=== PATIENT | female | born 1990 | race Caucasian/White ===

== ENCOUNTER → 2017-07-25 10:47 | Outpatient (CLI) | payer OTHER, SELFPAY ==
[2017-07-25 11:49] LABS: Anion Gap 7 (5-15); BUN 12 mg/dL (7-18); BUN/Creat Ratio 15.6 RATIO (10-20); Calcium,Total 8.4 mg/dL (8.5-10.1); Chloride 105 mmol/L (98-107); Cholesterol 131 mg/dL (200); Creatinine, Serum 0.77 mg/dL (0.55-1.02); EST Glomerular Filtration Rate 97 mL/min (>60); Est Glom Filt Rate - Afr Amer 117 mL/min (>60); Glucose 78 mg/dL (70-110); High Density Lipoprotein 52 mg/dL; Potassium 3.7 mmol/L (3.5-5.1); Sodium Level 139 mmol/L (136-145); Triglycerides 83 mg/dL; Very Low Density Lipoprotein 17 mg/dL (5-40)
== END ==
PROVIDERS: Family Provider Internal Medicine; PCP Internal Medicine; Visit Provider Internal Medicine
DX: I10 Essential (primary) hypertension (principal); E87.6 Hypokalemia
CPT/HCPCS: 36415; 80048; 80061

== ENCOUNTER 2018-03-20 15:35 | Outpatient (CLI) | payer OTHER, SELFPAY ==
[2018-03-20 15:57] VITALS: BMI 39.2
[2018-03-20 16:30] LABS: ROM Internal Control Test YES-OK TO RESULT pt. (Internal QC); ROM Patient Test Negative (Negative)
--- NOTE | 2018-03-21 08:33 | OB.TRI.NOTE ---
History of Present Illness Date of Service: 03/20/18 Was patient seen by the physician?: Yes Reason For Visit: R/O PROM Final SASCHA: 08/08/18 Gestational age: 19w 6 d Allergies No Known Allergies Allergy (Verified 03/20/18 16:10) - Pertinent Past Medical History Medical History: Past Medical History (Last Updated 07/24/17 @ 17:18 by Cassandra Toney) Anxiety (Acute) Hypertension (Chronic) Impression/Plan 19 week @ 19w 6 days with oligohydramnios neg ROM+, Neg. fern in the office. D/w her clinical presentation c/w SROM, monitor for labor, signs/symptoms of infection. Call or return prn and f/u next week for repeat US patient understands plan
== END 2018-03-20 16:55 | disposition home or self-care (01) ==
LOC: WPOUT 15:44 → WP 15:45
PROVIDERS: Family Provider Internal Medicine; PCP Internal Medicine; Visit Provider Obstetrics & Gynecology
DX: O41.02X0 Oligohydramnios, second trimester, not applicable or unspecified (principal); Z3A.19 19 weeks gestation of pregnancy
CPT/HCPCS: 84112; 99218; G0378

== ENCOUNTER → 2018-03-25 13:12 | Outpatient (CLI) | payer OTHER, SELFPAY ==
--- NOTE | 2018-03-25 13:14 | VDLE_ITS ---
Reason For Study: LEG PAIN RIGHT LEFT GSV is normal. CFV is compressible, spontaneous, phasic, CFV is compressible, spontaneous, phasic, competent, and demonstrates normal competent and demonstrates normal augmentation. augmentation. FV is compressible, spontaneous, phasic, competent and demonstrates normal augmentation. POP V is compressible, spontaneous, phasic, competent and demonstrates normal augmentation. T/P Trunk is compressible. PTV is compressible. RT PerV is compressible. Procedure Exam performed in department. A preliminary report was called and/or faxed to Dr. Peña. Interpretation Summary Deep veins of the right lower extremity are patent and compressible segmentally. There is no evidence of right lower extremity deep vein thrombosis. Valvular competence appears intact within the proximal deep venous system on the right . The right greater saphenous vein appears patent and compressible segmentally. Ordering Physician: Alex Peña Referring Physician: Alex Peña Performed By: Rosa Delacruz RVT
== END ==
PROVIDERS: Family Provider Internal Medicine; PCP Internal Medicine; Referring Provider Obstetrics & Gynecology; Visit Provider Obstetrics & Gynecology
DX: M79.604 Pain in right leg (principal)
CPT/HCPCS: 93971

== ENCOUNTER 2018-07-25 04:46 | Inpatient (IN) | payer OTHER, SELFPAY ==
--- NOTE | 2018-07-23 12:19 | HP.PCM_ITS ---
History and Physical Date of Admission: 07/25/18 Pre-Op History and Physical ? HPI: The patient is a 27 year old female presenting for pre-operative visit. She is scheduled for , for breech and chronic HTN on medications on 07/25/18. ??Procedure discussed along with risks, benefits and complications. ?Other alternatives discussed for management. Consent form signed? Yes. ? ? ? PAST?MEDICAL?HISTORY PAST MEDICAL HISTORY Diagnosis Date ? fracture as a child ? right arm, gym accident ? Hypertension ? ? ? PAST?SURGICAL?HISTORY PAST SURGICAL HISTORY Procedure Laterality Date ? EGD ? CURRENT?MEDICATIONS ? Current Outpatient Prescriptions: Miscellaneous Medical Supply (BLOOD PRESSURE CUFF) misc 1 Kit once daily. Disp: 1 Each Rfl: 0 labetalol (TRANDATE) 100 mg tablet Take 50 mg by mouth twice daily. Disp: Rfl: [id number] 267 mcg-321 mg- 250 mg CPTw Take by mouth. Disp: Rfl: ? No current facility-administered medications for this visit. ? ALLERGIES: Patient has no known allergies. ? PERSONAL HISTORY: SOCIAL?HISTORY Social History ??Marital status: ?Spouse name: Noemy ?Years of education: 13 ?Number of children: ? Occupational History Occupation ?Employer ?Comment ? [employer]* [employer] * ? Social History Main Topics ??Smoking status: Never Smoker ?Smokeless tobacco: Never Used ?Alcohol use: No ?Drug use: No ?Sexual activity: Yes ?Partners with: Male ? ? FAMILY HISTORY: FAMILY?HISTORY FAMILY HISTORY Problem Relation Age of Onset ? No Known Problems Mother ? ? Hypertension Father ? ? Hypertension Brother ? ? Cancer Maternal Grandmother ?Stomach cancer ? Heart disease Maternal Grandfather ? ? Hypertension Paternal Grandmother ? ? Hypertension Paternal Grandfather ? ? REVIEW OF SYMPTOMS: GENERAL: denies fevers or chills ENDOCRINOLOGY: has not been on steroids Cardiology : denies palpitations or chest pain Respiratory: denies SOB other than normal for or cough Hematology: denies history of prolonged bleeding or easy bruising or VTE Allergy: Denies history of personal or family history of allergy to anesthesia ? ? PHYSICAL EXAMINATION: ? VITALS: Blood pressure 140/64, weight 276 lb (125.2 kg), last menstrual period 10/01/2017. ? GENERAL: ?The patient is well nourished, well hydrated in no acute distress. ?, The patient is oriented to time, place, and person. NECK: Supple. No lynphadenopathy, normal thyroid, no thyromegaly. LUNGS: Clear to auscultation bilaterally. no wheezes, rhonchi or rales HEART: Regular rate and rhythm, Normal heart sounds and No murmurs or gallops abd- soft nontender, gravid, size appropriate for gestational age ? ? IMPRESSION: Chronic hypertension on medication without preeclampsia as of preop visit, estimated weight at 12th percentile, breech presentation ? PLAN: ??The risks/benefits/alternatives and personal involved for the planned c/s?were reviewed with the patient. Her questions were answered to her satisfaction and she desires to proceed. ?Consent was signed. ?I reviewed with her postop instructions and expectations. ? ? I have reviewed and updated past medical and surgical history, medications and allergies Henna Mcfarland M.D. Patient seen and examined today preoperatively at 725. There are no clinically relevant updates to the H&P.
[2018-07-25] VITALS (21 sets, daily range): BP systolic 125–152; BP diastolic 61–85; PULSE 68–87; RESP 16–20; TEMP 36.1–36.8; O2SAT 94–100; BMI 43.3
[2018-07-25] MEDS: Lactated Ringers 1,000 ML 999 ML IV (05:10)
[2018-07-25 05:34] LABS: Absolute Lymphocyte Count 2.38 X10^3/ul (0.83-4.51); Absolute Neutrophil Count 10.4 X10^3/uL (2.0-7.7); Basophil# 0.04 X10^3/uL; Basophil% 0.3 % (0-1); Eosinophil# 0.12 X10^3/uL; Eosinophils% 0.9 % (0-5); Hematocrit 34.7 % (37-47); Hemoglobin 11.6 g/dl (12.0-15.0); Lymphocyte # 2.38 X10^3/ul (4.0); Lymphocyte % 17.5 % (19-41); Mean Corp Hgb Conc 33.4 g/gl (32-36); Mean Corpuscular Hgb 27.2 pg (27.0-32.0); Mean Corpuscular Volume 81.3 fL (81-99); Monocyte# 0.63 X10^3/uL; Monocyte% 4.6 % (0-10); Neutrophil # 10.37 X10^3/uL (2.7-7.7); Neutrophil % 76.3 % (47-70); Platelet Count 280 K/mm3 (150-450); RBC Distribution Width CV 13.6 % (11.6-14.6); RBC Distribution Width SD 39.3 fl (35.1-43.9); Red Blood Count 4.27 M/mm3 (4.2-5.4); White Blood Count 13.6 K/mm3 (4.4-11.0)
[2018-07-25 05:37] LABS: POSITIVE COUNT NO; POSITIVE DIFFERENTIAL NO; POSITIVE MORPHOLOGY NO
[2018-07-25] MEDS: Lactated Ringers 1,000 ML 150 ML IV (06:43)
[2018-07-25] MEDS: Sodium Citrate/Citric Acid 30 ML UDC PO (06:58)
[2018-07-25] MEDS: Oxytocin 30 units/NS 500 ml 30 UNITS/500 ML IV.SOLN 167 UNITS IV (07:53)
--- NOTE | 2018-07-25 08:00 | PLAC_PTH ---
PATIENT: KELVIN ASHLEY LOC: WP U#:[id number] AGE/SX: ROOM: WP007 RE07/25/[address]: Dr. Henna Mcfarland MD : 1990 BED: 1 DIS: 07/26/2018 SPEC #: [id number] RECD: 07/25/18 09:24 STATUS: ROGER REJesenia #: [id number] JENI: 07/25/18 08:[address]: Henna Mcfarland DEPT: SURGICAL PATHOLOGY RECD BY: Jarocho Spangler ENTERED: 07/25/18 11:26 SP TYPE: PLACENTA OTHR DR: Dr. 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 Placental membranes - mild chronic decidual inflammation. 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 AM:clifford 07/29/18 MICROSCOPIC DESCRIPTION Slides are reviewed. GROSS DESCRIPTION SPECIMEN: PLACENTA / CLINICAL INFORMATION: A. Weight: 2.665 kg B. Gestational Age: 38 weeks C. Sex: Female PLACENTAL WEIGHT (POST FIXATION): 403 gm PLACENTAL DIMENSIONS: 21 x 14 x 2.5 cm PLACENTAL SHAPE: Usual ovoid PLACENTAL WEIGHT FOR GESTATIONAL AGE: Within 10-99th percentile MEMBRANES - Present A. Insertion: Marginal B. Site of rupture from edge: At edge of placental disc C. Color of membrane: Webster-trevino D. Abnormalities: None UMBILICAL CORD - Present A. Color: Webster-trevino B. Insertion: Marginal C. Length: 18 cm D. Diameter: 1 cm E. Number of vessels: Three F. Abnormalities: None PLACENTAL DISC - Present A. Color of surface: Webster-trevino B. surface abnormalities: None C. Maternal cotyledons: Intact with minimal tears D. Attached retro placental clot: No clot E. Cut surface: Dark red and spongy F. Lesions: Serial sections reveal a reddish-webster lesion measuring 1.2 cm close to the maternal surface. Serial sections also reveal an irregular webster-yellow lesion measuring 2 x 1.5 x 1 cm in the mid portion to placental floor. G. Separate clot: Absent SECTIONS SUBMITTED: 1. Membrane roll and umbilical cord ( end notched) 2. Placental disc, and maternal surfaces, lesion 3. Placental disc, and maternal surfaces, lesion 4. Placental disc, and maternal surfaces AM:clifford 07/28/18 TC:5 CPT: 05372
--- NOTE | 2018-07-25 08:32 | OP.PCM_ITS ---
Delivery Classification: Scheduled Final SASCHA: 08/08/18 Final SASCHA Source: US <20 weeks Gestational age: 38 Weeks and 0 Days Indications for : Breech, - - Tonic hypertension on medications, single umbilical artery Description of Procedure: The patient was taken to the operating room. She was prepped and draped in the dorsal supine position with a leftward tilt. A Pfannenstiel skin incision was made approximately 2 cm above the symphysis pubis and carried through to underlying layer fascia with the scalpel. The fascia was incised incised in the midline and extended laterally with the Sainz scissors. The fascia was dissected off the rectus muscles with blunt and sharp dissection. The rectus muscles were in the midline and the peritoneum was entered bluntly. The peritoneal incision was stretched and the bladder blade was placed. The uterine incision was made in a low transverse fashion with the scalpel and extended superiorly and inferiorly with blunt dissection. The infant was found to be compound breech with 1 foot extending down into the lower uterine segment and the other one tucked. I attempted to bring the buttocks to the incision but was unable to manipulate the into this position. I then delivered both feet and turn the to back up. The was then delivered with gentle traction in the standard fashion to the shoulders. The arms were swept out individually. 2 fingers were placed on the maxilla and with fundal pressure to keep the head flexed the head was delivered easily. The mouth and nares were bulb suctioned. The infant was not initially vigorous so the cord was clamped and cut and as the infant was being transferred to the warmer she began to cry vigorously. The placenta was delivered with fundal massage and gentle traction in the standard fashion. The uterus was exteriorized and cleared of all clots and debris. The cervix was dilated with a ring forcep. The uterine incision was closed with #1 Vicryl in a running locked fashion. A second layer of the same suture was used in an imbricating fashion. The incision was examined and was found to be hemostatic. The uterus was placed back into the peritoneal cavity and hemostasis was again confirmed. The rectus muscles were examined and any bleeding was Bovie cauterized. The parietal peritoneum and rectus muscles were closed en bloc with an 0 Vicryl running suture. The surgical teams outer gloves were then changed. The rectus fascia was examined and any bleeding was Bovie cauterized and the rectus fascia was closed with #1 PDS suture in a running standard fashion. The subcutaneous tissue was examining and any bleeding was Bovie cauterized. The subcutaneous tissue was reapproximated with 3-0 Vicryl suture. The skin was closed in a subcuticular fashion by the AIR/OCEAN EXPORT CLERK with me present in the labor and delivery suite. I performed the remainder of the procedure with assistance. All sponge, lap, and needle counts were correct. The patient was taken to her room for recovery in a stable condition. Amniotic Membrane Rupture Type: Artificial Amniotic Fluid Description: Clear Placenta Disposition: Sent to Pathology Drain: Ruiz to straight drain Fluids Replaced: 1600 cc Cord Entanglement: None Cord Vessel Description: 2 Vessels Esitmated Blood Loss (ml): 100 Gender: Female (1 minute): 8 (5 minute): 9 Delayed cord clamping: No Pre-op Antibiotic Given: - - Ancef 3 g Complications: None - Admit VTE Documentation VTE Present on Admission: No VTE Mechan Device Prophylaxis: SCD's VTE Pharm Prophylaxis ordered?: Yes
[2018-07-25] MEDS: Lactated Ringers 1,000 ML 100 ML IV ×2 (09:44→19:40)
[2018-07-25] MEDS: Labetalol 100 MG Tablet 50 MG PO ×2 (09:44→22:15)
--- NOTE | 2018-07-25 13:11 | DCINST_ITS ---
Discharge Diet: No Restrictions Discharge Activity: Return to Normal Activity, May Not Drive - for 2 weeks, May not drive while taking narcotic pain medications., May Shower, May Take a Tub Bath - in 7 days. May resume sexual activity in: 4-6 weeks Lifting Restrictions: 20 pounds Additional Activity Instructions:: Nothing in the vagina for 4-6 weeks. You may return to work/school in 6 weeks. Call your doctor if your incision/area has: Continuous Slow Oozing, Sudden Increased Bleeding, Increased Pain/ Swelling, Increased Redness, Foul Smelling Discharge Call your doctor if you observe: Fever of 101 or Higher, Using more than one pad per hour - for 2 hours Suture Line Care: Avoid Pulling/Pushing, Avoid Pinching/Bending Cleanse incision/area with: Keep Dressing Clean & Dry Additional Instructions: If you experience any of the following, contact your healthcare provider. * Bleeding that soaks a pad every hour for 2 hours * Fever 100.4 or higher * Unrelieved incision or abdominal pain * Swelling, redness, discharge or bleeding from your incision or episiotomy site * Your incision begins to separate * Problems urinating (including inability to urinate or burning while urinating). * Visual changes * Severe headache * Flu-like symptoms * Pain or redness in one of both of your breasts * Pain, warmth, tenderness or swelling in your legs, especially the calf area * Frequent nausea and vomiting * Symptoms of depression or anxiety If you experience any of the following, call 911 or go to the nearest Emergency Room. * Chest pain * Problems breathing * Seizure activity * Partial or complete paralysis of a body part, slurred speech, weakness or drooping of the face, or a sudden inability to walk or hold your balance Allergies/Adverse Reactions: Allergies No Known Allergies Allergy (Verified 07/25/18 05:08) Medications to take at Discharge Labetalol [Trandate (Beta Ronald)] 50 mg PO BID 03/20/18 Vits [Prenatabs FA ] 2 tab PO DAILY 03/20/18 Ibuprofen [Motrin] 800 mg PO TID PRN PRN #60 tablet 07/25/18 Labetalol [Trandate (Beta Ronald)] 50 mg PO BID tablet 07/25/18 Oxycodone HCl/Acetaminophen [Percocet 5/325] 1 - 2 tablet PO Q8 PRN 7 Days #28 tablet 07/25/18 The following prescriptions were given: Ibuprofen [Motrin] 800 mg PO TID PRN PRN #60 tablet PRN Reason: Pain Oxycodone HCl/Acetaminophen [Percocet 5/325] 1 - 2 tablet PO Q8 PRN 7 Days #28 tablet PRN Reason: Pain Follow-Up: Call to make an appointment with your doctor for an incision check in 1-2 weeks. You will also need a 6 week post- follow up appointment. Test results from this visit will be discussed in further detail at your follow- up appointment, if applicable. Please Follow Up With: Henna Mcfarland MD - Call to make an appointment for an incision check in 1-2 [phone] When: You will need a post check in 6 weeks. Primary Care Physician: Sandi Romo MD [Primary Care Provider] -
[2018-07-25] MEDS: Ketorolac 30 MG/ML Syringe IV ×2 (14:11→19:41)
[2018-07-25] MEDS: Senna/Docusate Sodium 1 Tablet PO (22:15)
[2018-07-26] VITALS (7 sets, daily range): BP systolic 115–131; BP diastolic 54–74; PULSE 82–99; RESP 16–18; TEMP 36.1–37.2; O2SAT 96–99
[2018-07-26] MEDS: Ketorolac 30 MG/ML Syringe IV ×3 (02:17→13:41)
[2018-07-26] MEDS: Enoxaparin 40 MG/0.4 ML Syringe SC (05:48)
[2018-07-26 06:12] LABS: Hematocrit 33.6 % (37-47); Mean Corp Hgb Conc 32.7 g/gl (32-36); Mean Corpuscular Volume 82.6 fL (81-99); Mean Platelet Vol. 11.1 fl (6.2-12.0); Platelet Count 256 K/mm3 (150-450); RBC Distribution Width CV 13.6 % (11.6-14.6); RBC Distribution Width SD 39.5 fl (35.1-43.9); Red Blood Count 4.07 M/mm3 (4.2-5.4); Scan Indicated on CBC? Y/N NO; White Blood Count 14.2 K/mm3 (4.4-11.0)
[2018-07-26] MEDS: 0.9% Saline Lock 10 ML Syringe IV ×2 (08:09→13:42)
[2018-07-26] MEDS: Labetalol 100 MG Tablet 50 MG PO (10:13)
[2018-07-26] MEDS: Senna/Docusate Sodium 1 Tablet PO (10:15)
--- NOTE | 2018-07-26 10:59 | PCM.PN.OB ---
Subjective: Doing well per patient and nursing staff. Ambulating and taking PO without difficulty. Ruiz out and voiding without concerns. Pumping breastmilk. Denies any headache, visual changes, chest pain, shortness of breath, increased bleeding or leg pain. Baby is at [facility] in [place] awaiting surgery for TE fistula repair. Patient would like to be discharged today to be with baby. - Physical Exam General: Alert, Oriented x3, Cooperative HEENT: Atraumatic, Normocephalic Neck: Supple, Trachea Midline Lungs: Clear to auscultation, Normal air movement, No rhonchi, No wheeze Cardiovascular: Regular rate, Regular Rhythm, No murmurs Abdomen: Soft, Hypoactive Bowel Sounds Extremities: Edema - +1 non pitting edema bilaterally. Alex's negative. Negative clonus. DTR +2/4 bilaterally Neurological: Deep Tendon Reflexes 2+/4 and Symmetrical Psych/Mental Status: Normal Affect, Appropriate Vital Signs Temp Pulse Resp BP Pulse Ox 96.9 F L 87 18 124/64 H 99 07/26/18 08:00 07/26/18 08:00 07/26/18 08:00 07/26/18 08:00 07/26/18 05:00 Oxygen Delivery Method Room Air Weight: 276 lb 10.882 oz Body Mass Index (BMI) 43.3 Intake and Output for Last 24 Hours 07/24/18 07/25/18 07/26/18 23:59 23:59 23:59 Intake Total 1900 / 1900 948 / 948 Output Total 1500 / 1500 2600 / 2600 Balance 400 / 400 -1652 / -1652 Laboratory Tests Past 24 Hrs 07/26/18 05:30 WBC 14.2 H RBC 4.07 L Hgb 11.0 L Hct 33.6 L MCV 82.6 MCH 27.0 MCHC 32.7 RDW 13.6 RDW Differential 39.5 Plt Count 256 MPV 11.1 Medical Necessity - Tobacco Use Smoking Status: Never smoker Assessment/Plan All Active Problems (Last Updated 04/08/18 @ 09:16 by Janet Bauer) Anxiety (Acute) A: POD#1 Section P: 1) Hgb stable 11.0, BP normal. Pain controlled 2) Routine care. Reviewed discharge instructions and when to call. 3) Ok to discharge at 24 hrs post section, patient would like to go see baby at [facility]. Discussed pain management and restrictions. 4) Has virtual visit with in no week and needs to make follow up incision check in 2 weeks. 5) notified of patient status and agrees with plan for discharge. D/C home today.
[2018-07-26] MEDS: oxyCODONE 5 MG Tablet PO ×2 (11:09→16:27)
--- NOTE | 2018-07-26 11:12 | PCM.DC.SUM ---
Discharge Date and Diagnosis Date of Admission: 07/25/18 Date of Discharge: 07/26/18 - Primary Discharge Diagnosis Chronic hypertension on medication without preeclampsia estimated weight at 12th percentile breech presentation Single umbilical artery Primary Section - Secondary Discharge Diagnosis Chronic Problems (Last Updated 04/08/18 @ 09:16 by Janet Bauer) Hypokalemia (Chronic) Hypertension (Chronic) Hospital Course and Treatment Operations: - - Section Summary of Care Provided: The patient is a 27 year old F [ at 38 weeks gestational age for Primary section due to chronic hypertension, estimated weight 12th percentile, single umbilical artery, and breech presentation. section without complications. Post op hemodynamically stable, CBC stable. 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 Baby transferred to [facility] in [place] for TE fistula repair. Patient stable and planning discharge to go see baby in [place]. - Physical Exam Vital Signs Temp Pulse Resp BP Pulse Ox 96.9 F L 87 18 124/64 H 99 07/26/18 08:00 07/26/18 08:00 07/26/18 08:00 07/26/18 08:00 07/26/18 05:00 Oxygen Delivery Method Room Air Weight: 276 lb 10.882 oz Body Mass Index (BMI) 43.3 Intake and Output for Last 24 Hours 07/24/18 07/25/18 07/26/18 23:59 23:59 23:59 Intake Total 1900 / 1900 948 / 948 Output Total 1500 / 1500 2600 / 2600 Balance 400 / 400 -1652 / -1652 Laboratory Tests Past 24 Hrs 07/26/18 05:30 WBC 14.2 H RBC 4.07 L Hgb 11.0 L Hct 33.6 L MCV 82.6 MCH 27.0 MCHC 32.7 RDW 13.6 RDW Differential 39.5 Plt Count 256 MPV 11.1 Discharge Diet: No Restrictions Discharge Activity: Return to Normal Activity, May Not Drive - for 2 weeks, May not drive while taking narcotic pain medications., May Shower, May Take a Tub Bath - in 7 days. May resume sexual activity in: 4-6 weeks Additional Activity Instructions:: Nothing in the vagina for 4-6 weeks. You may return to work/school in 6 weeks. Call your doctor if your incision/area has: Continuous Slow Oozing, Sudden Increased Bleeding, Increased Pain/ Swelling, Increased Redness, Foul Smelling Discharge Call your doctor if you observe: Fever of 101 or Higher, Using more than one pad per hour - for 2 hours Suture Line Care: Avoid Pulling/Pushing, Avoid Pinching/Bending Cleanse incision/area with: Keep Dressing Clean & Dry Home Medications: Medications to take at Discharge Labetalol [Trandate (Beta Ronald)] 50 mg PO BID 03/20/18 Vits [Prenatabs FA ] 2 tab PO DAILY 03/20/18 Ibuprofen [Motrin] 800 mg PO TID PRN PRN #60 tablet 07/25/18 Labetalol [Trandate (Beta Ronald)] 50 mg PO BID tablet 07/25/18 Oxycodone HCl/Acetaminophen [Percocet 5/325] 1 - 2 tablet PO Q8 PRN 7 Days #28 tablet 07/25/18 Following Prescrptions Were Given to Patient: Ibuprofen [Motrin] 800 mg PO TID PRN PRN #60 tablet PRN Reason: Pain Oxycodone HCl/Acetaminophen [Percocet 5/325] 1 - 2 tablet PO Q8 PRN 7 Days #28 tablet PRN Reason: Pain Primary Care Physician: Sandi Romo MD [Primary Care Provider] - Please Follow Up With: Henna Mcfarland MD - Call to make an appointment for an incision check in 1-2 [phone] When: You will need a post check in 6 weeks. Medical Necessity - Tobacco Use Smoking Status: Never smoker Meaningful Use Info Meaningful Use Diagnoses (Choose all that apply): None applicable
--- NOTE | 2018-07-26 11:17 | DS.PCM_ITS ---
Discharge Date and Diagnosis Date of Admission: 07/25/18 Date of Discharge: 07/26/18 - Primary Discharge Diagnosis Chronic hypertension on medication without preeclampsia estimated weight at 12th percentile breech presentation Single umbilical artery Primary Section - Secondary Discharge Diagnosis Chronic Problems (Last Updated 04/08/18 @ 09:16 by Janet Buaer) Hypokalemia (Chronic) Hypertension (Chronic) Hospital Course and Treatment Operations: - - Section Summary of Care Provided: The patient is a 27 year old F [ at 38 weeks gestational age for Primary section due to chronic hypertension, estimated weight 12th percentile, single umbilical artery, and breech presentation. section without complications. Post op hemodynamically stable, CBC stable. 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 Baby transferred to [facility] in [place] for TE fistula repair. Patient stable and planning discharge to go see baby in [place]. - Physical Exam Vital Signs Temp Pulse Resp BP Pulse Ox 96.9 F L 87 18 124/64 H 99 07/26/18 08:00 07/26/18 08:00 07/26/18 08:00 07/26/18 08:00 07/26/18 05:00 Oxygen Delivery Method Room Air Weight: 276 lb 10.882 oz Body Mass Index (BMI) 43.3 Intake and Output for Last 24 Hours 07/24/18 07/25/18 07/26/18 23:59 23:59 23:59 Intake Total 1900 / 1900 948 / 948 Output Total 1500 / 1500 2600 / 2600 Balance 400 / 400 -1652 / -1652 Laboratory Tests Past 24 Hrs 07/26/18 05:30 WBC 14.2 H RBC 4.07 L Hgb 11.0 L Hct 33.6 L MCV 82.6 MCH 27.0 MCHC 32.7 RDW 13.6 RDW Differential 39.5 Plt Count 256 MPV 11.1 Discharge Diet: No Restrictions Discharge Activity: Return to Normal Activity, May Not Drive - for 2 weeks, May not drive while taking narcotic pain medications., May Shower, May Take a Tub Bath - in 7 days. May resume sexual activity in: 4-6 weeks Additional Activity Instructions:: Nothing in the vagina for 4-6 weeks. You may return to work/school in 6 weeks. Call your doctor if your incision/area has: Continuous Slow Oozing, Sudden Incr eased Bleeding, Increased Pain/ Swelling, Increased Redness, Foul Smelling Discharge Call your doctor if you observe: Fever of 101 or Higher, Using more than one pad per hour - for 2 hours Suture Line Care: Avoid Pulling/Pushing, Avoid Pinching/Bending Cleanse incision/area with: Keep Dressing Clean & Dry Home Medications: Medications to take at Discharge Labetalol [Trandate (Beta Ronald)] 50 mg PO BID 03/20/18 Vits [Prenatabs FA ] 2 tab PO DAILY 03/20/18 Ibuprofen [Motrin] 800 mg PO TID PRN PRN #60 tablet 07/25/18 Labetalol [Trandate (Beta Ronald)] 50 mg PO BID tablet 07/25/18 Oxycodone HCl/Acetaminophen [Percocet 5/325] 1 - 2 tablet PO Q8 PRN 7 Days #28 tablet 07/25/18 Following Prescrptions Were Given to Patient: Ibuprofen [Motrin] 800 mg PO TID PRN PRN #60 tablet PRN Reason: Pain Oxycodone HCl/Acetaminophen [Percocet 5/325] 1 - 2 tablet PO Q8 PRN 7 Days #28 tablet PRN Reason: Pain Primary Care Physician: Sandi Romo MD [Primary Care Provider] - Please Follow Up With: Henna Mcfarland MD - Call to make an appointment for an incision check in 1-2 [phone] When: You will need a post check in 6 weeks. Medical Necessity - Tobacco Use Smoking Status: Never smoker Meaningful Use Info Meaningful Use Diagnoses (Choose all that apply): None applicable
--- NOTE | 2018-07-26 15:40 | CASEMGMT ---
Social Work Brief Assessment - Labor and Delivery Unit Refer documentation below for further details. Date of Referral/Notification: 07/26/2017 Time of Referral: 0830 Referred By: verbal notification by nursing staff Reason for Referral: support, baby at [facility] Date of Intervention: 07/26/2017 Time of Intervention: 1540 Informant: Medical record and mother of baby (MOB) Kaycee Salcedo History: MOB is a 27-year-old female to father of baby (FOB) Rosales Arrieta (age 45). MOB G2, P0 to 1 after delivering baby Karyn Noe on 07.25.18. 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 MOB reports to be employed at [employer] at the [employer]. MOB reports to have good support from family, including from FOB. MOB reports also to have needed supplies for baby to get started. MOB denies any history of depression or anxiety. No reports of any substance use or abuse issues. Assessment: MOB getting ready to leave hospital to be with baby. FOB has been up at [place] with baby since transfer. MOB reports to feel ready to go, is worried about own self and recovery due to having a but does want to go and see the baby. MOB listened to brief education on depression, risks, and importance for self-care and letting others know if symptoms arise. MOB reports not to be worried about depression but accepting of education offered. MOB with appropriate affect, good eye contact and calm appearing motor activity. MOB denies any needs before discharge from [employer] and reports that MOB?s mom will transport MOB to [place]. Plan: MOB discharging home today, plan to go to [place] to see baby. MOB made aware that social work will be available at [place] if needs to arise. MOB voices understanding. No further needs requested or indicated. -JACKIE Castro, PATIENT CARE
[2018-07-30 08:17] LABS: Pathology Specimen OB SEE PATHOLOGY REPORT
--- NOTE | 2018-07-31 16:25 | NURSING ---
Voicemail left or Adeline. She was encouraged to call if any concerns or questions to please all us. Lazaro WELLS
== END 2018-07-26 15:30 | disposition home or self-care (01) | DRG 787 ==
PROVIDERS: Admitting Provider Obstetrics & Gynecology; Family Provider Internal Medicine; PCP Internal Medicine; Referring Provider Obstetrics & Gynecology; Visit Provider Obstetrics & Gynecology
PROC: 10D00Z1 Extraction of Products of Conception, Low, Open Approach (ICD-10-PCS; CPT 59514; principal; 2018-07-25 07:15)
DX: O32.1XX0 Maternal care for breech presentation, not applicable or unspecified (principal); O10.92 Unspecified pre-existing hypertension complicating childbirth; O69.89X0 Labor and delivery complicated by other cord complications, not applicable or unspecified; Z79.899 Other long term (current) drug therapy; Z3A.38 38 weeks gestation of pregnancy; Z37.0 Single live birth
CPT/HCPCS: 85025; 85027; 86850; 86900; 88307; 99218; J7120; A4216; G0378; J2405

== ENCOUNTER 2021-04-03 05:05 | Inpatient (IN) | payer OTHER, SELFPAY ==
--- NOTE | 2021-03-29 12:03 | HP.PCM_ITS ---
History and Physical Date of Admission: 04/03/21 HPI: The patient is a 30 year old female presenting for pre-operative visit. She is scheduled for and bilateral salpingectomy, for previous c/s and sterilization on 04/03/2021. Procedure discussed along with risks, benefits and complications. Other alternatives discussed for management. Consent form signed? Yes. ? ? PAST MEDICAL HISTORY PAST MEDICAL HISTORY Diagnosis Date ? fracture as a child ? right arm, gym accident ? Hypertension ? ? ? PAST SURGICAL HISTORY PAST SURGICAL HISTORY Procedure Laterality Date ? DELIVERY ONLY ? 07/25/2018 ? breech, LTCS w/ double layer clossure ? EGD ? CURRENT MEDICATIONS Current Outpatient Medications Medication Sig Dispense Refill ? [id number] 267 mcg-321 mg- 250 mg CPTw Take by mouth. ? ? ? No current facility-administered medications for this visit. ? ? ALLERGIES: Patient has no known allergies. ? PERSONAL HISTORY: SOCIAL HISTORY Social History ? Tobacco Use ? Smoking status: Never Smoker ? Smokeless tobacco: Never Used Substance Use Topics ? Alcohol use: No ? Drug use: No ? FAMILY HISTORY: FAMILY HISTORY FAMILY HISTORY Problem Relation Age of Onset ? No Known Problems Mother ? ? Hypertension Father ? ? Hypertension Brother ? ? Cancer Maternal Grandmother ? ? Stomach cancer ? Heart disease Maternal Grandfather ? ? Hypertension Paternal Grandmother ? ? Hypertension Paternal Grandfather ? ? other (TEF) Daughter ? ? other (VSD) Daughter ? ? ? REVIEW OF SYMPTOMS: GENERAL: denies fevers or chills ENDOCRINOLOGY: has not been on steroids Cardiology : denies palpitations or chest pain Respiratory: denies SOB or cough Hematology: denies history of prolonged bleeding or easy bruising or VTE Allergy: Denies history of personal or family history of allergy to anesthesia ? PHYSICAL EXAMINATION: ? VITALS: Weight 277 lb (125.6 kg), last menstrual period 06/26/2020. ? GENERAL: The patient is well nourished, well hydrated in no acute distress. , The patient is oriented to time, place, and person. NECK: Supple. No lynphadenopathy, normal thyroid, no thyromegaly. LUNGS: Clear to auscultation bilaterally. no wheezes, rhonchi or rales HEART: Regular rate and rhythm, Normal heart sounds and No murmurs or gallops abd- soft, nontender, gravid ? IMPRESSION: Estimated Date of Delivery: 04/10/21 for repeat c/s and sterilization request ? PLAN: The risks/benefits/alternatives and personal involved for the planned c- s and bilateral salpingectomy were reviewed with the patient. Her questions were answered to her satisfaction and she desires to proceed. Consent was signed. I reviewed with her postop instructions and expectations. ? ? I have reviewed and updated past medical and surgical history, medications and allergies. This H&P was completed in my office on 03/29/21. 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
[2021-04-03] VITALS (19 sets, daily range): BP systolic 104–145; BP diastolic 54–87; PULSE 63–90; RESP 15–18; TEMP 36.1–36.6; O2SAT 97–100; BMI 42.0
[2021-04-03] MEDS: Lactated Ringers 1,000 ML 999 ML IV (05:35)
[2021-04-03 05:48] LABS: Absolute Lymphocyte Count 2.17 X10^3/uL (0.83-4.51); Absolute Neutrophil Count 8.8 X10^3/uL (2.0-7.7); Basophil# 0.05 X10^3/uL; Basophil% 0.4 % (0-1); Eosinophils% 0.9 % (0-5); Hematocrit 33.5 % (37-47); Hemoglobin 10.9 g/dL (12.0-15.0); Lymphocyte # 2.17 X10^3/ul (0.83-4.51); Lymphocyte % 18.5 % (19-41); Mean Corp Hgb Conc 32.5 g/dL (32-36); Mean Corpuscular Hgb 26.4 pg (27.0-32.0); Mean Corpuscular Volume 81.1 fL (81-99); Mean Platelet Vol. 10.8 fl (6.2-12.0); Monocyte# 0.54 X10^3/uL; Monocyte% 4.6 % (0-10); NRBC Flagged by Analyzer 0 % (0-5); Neutrophil # 8.84 X10^3/uL (2.7-7.7); Neutrophil % 75.1 % (47-70); Platelet Count 295 K/mm3 (150-450); RBC Distribution Width CV 13.5 % (11.6-14.6); RBC Distribution Width SD 39.1 fl (35.1-43.9); Red Blood Count 4.13 M/mm3 (4.2-5.4); White Blood Count 11.8 K/mm3 (4.4-11.0)
[2021-04-03] MEDS: Acetaminophen 500 MG Tablet 1000 MG PO ×3 (05:56→18:17)
[2021-04-03] MEDS: Lactated Ringers 1,000 ML 150 ML IV (06:37)
[2021-04-03] MEDS: Sodium Citrate/Citric Acid 30 ML UDC PO (07:10)
--- NOTE | 2021-04-03 07:56 | FALS_PTH ---
PATIENT: KELVIN ASHLEY LOC: [facility] U#:[id number] AGE/SX: 30/F ROOM: WP004 RE04/03/[address]: Dr. Henna Mcfarland MD : 1990 BED: 1 DIS: 04/04/2021 SPEC #: [id number] RECD: 04/03/21 10:45 STATUS: ROGER REJesenia #: [id number] JENI: 04/03/21 07:[address]: Henna Mcfarland DEPT: SURGICAL PATHOLOGY RECD BY: Milagro Ferrara ENTERED: 04/03/21 11:49 SP TYPE: FALL TUBES OTHR DR: Dr. Sandi Romo MD Tissues: Fallopian tube Procedures: Surgery Specimen Level II HEADER OPERATION: Tubal ligation PRE-OP DIAGNOSIS: Sterilization TISSUE SUBMITTED: Fallopian tubes, tie on left MICROSCOPIC DIAGNOSIS Right and left fallopian tubes, bilateral salpingectomies: Complete segments of right and left fallopian tubes with no pathologic change. AM:clifford 04/04/2021 MICROSCOPIC DESCRIPTION Slides are reviewed. GROSS DESCRIPTION Received in fixative is one container labeled with the patient's name and designated bilateral fallopian tubes. The specimen consists of two fallopian tubes with an average length of 6 cm and has an average diameter of 0.7 cm. Both fallopian tubes have normal fimbriated ends. No mass lesions are identified. Machine Biller sections are submitted in two cassettes as follows: 1 - right fallopian tube, 2 - left fallopian tube. / AM:clifford 04/03/21 TC:4 CPT: 79484 x2
--- NOTE | 2021-04-03 08:27 | OP.PCM_ITS ---
Maternal Data Information Final SASCHA: 04/10/21 Gestational age: 39 0/7 Details Operative Information Date of Procedure: 04/03/21 Indications for : Repeat Elective and Desires elective sterilization Classification: Scheduled Procedure Type: bilateral salpingectomy blacksmith assistant #1: Pillo Snyder Type of Anesthesia: Spinal Anesthesiologist: Gigi Heath Special Medications: duramorph Antibiotic Given: Ancef 3 grams IV x1 Drain: Ruiz to straight drain Estimated Blood Loss: 800 Fluids Replaced: 1200 Procedure Start Time: 07:56 Procedure Stop Time: 08:35 Time of Delivery: 07:59 Findings Description of Procedure: The patient was taken to the operating room. She was prepped and draped in the dorsal supine position with a leftward tilt. A Pfannenstiel skin incision was made approximately 2 cm above the symphysis pubis and carried through to underlying layer fascia with the scalpel. The fascia was incised incised in the midline and extended laterally with the Sainz scissors. The fascia was dissected off the rectus muscles with blunt and sharp dissection. The rectus muscles were in the midline and the peritoneum was entered bluntly. The peritoneal incision was stretched and the bladder blade was placed. The Munir O retractor was placed in the usual sterile fashion. A hand was swept around it to make sure no abdominal contents were trapped beneath it. The uterine incision was made in a low transverse fashion with the scalpel and extended superiorly and inferiorly with blunt dissection. The amniotic membranes were ruptured bluntly and clear amniotic fluid returned. The infant's buttocks were brought to the incision. The legs were swept out individually. Then the arms were swept out individually. A towel was placed around the neonates trunk. The head then delivered very easily without fundal pressure even being given. The mouth and nares were bulb suctioned. The cord was clamped and cut as the was stimulated. Cord clamping was delayed. The infant was handed off to the waiting nursing staff. The placenta was delivered with fundal massage and gentle traction in the standard fashion. The uterus was left in the peritoneal cavity. The cervix was dilated with a ring forcep. The uterine incision was closed with #1 Vicryl in a running locked fashion. A second layer of the same suture was used in an imbricating fashion. The incision was examined and was found to be hemostatic. The left fallopian tube was identified and followed out to the fimbriated end. The LigaSure device was used to clamp, seal and transect the antimesenteric portion of the tube. The tube was then transected from the uterus. Hemostasis of the pedicles was noted. The same procedure was performed on the contralateral side and excellent hemostasis was noted. The rectus muscles were examined and any bleeding was Bovie cauterized. The parietal peritoneum and rectus muscles were closed en bloc with an 0 Vicryl running suture. The surgical teams outer gloves were then changed. The rectus fascia was examined and any bleeding was Bovie cauterized and the rectus fascia was closed with 0 PDS suture in a running standard fashion. The subcutaneous tissue was examining and any bleeding was Bovie cauterized. The subcutaneous tissue was reapproximated with 3-0 Vicryl suture in 2 layers. The skin was closed in a subcuticular fashion by the GEAR REPAIRER with me present in the labor and delivery suite. I performed the remainder of the procedure with assistance. All sponge, lap, and needle counts were correct. The patient was taken to her room for recovery in a stable condition. Presentation: Positive for Complete Breech Amniotic Membrane Rupture Type: Artificial Amniotic Fluid Description: Clear Placental Delivery Description: Expressed Placenta Disposition: [facility] Specimen(s) Sent to Pathology: Bilateral fallopian tube Cord Vessel Description: 3 Vessels Cord Entanglement: None A Gender: Male (Enedelia Howard ) (1 minute): 8 (5 minute): 9 Delayed Cord Clamping: Yes Complications Complications: none Admit VTE Documentation VTE Present on Admission: No VTE Mechan Device Prophylaxis: SCD's VTE Pharm Prophylaxis Ordered: Yes
[2021-04-03] MEDS: Ketorolac 30 MG/ML Syringe IV ×3 (09:13→20:46)
[2021-04-03] MEDS: Oxytocin 30 units/NS 500 ml 30 UNITS/500 ML IV.SOLN 167 UNITS IV (09:13)
[2021-04-03] MEDS: 0.9% Saline Lock 10 ML Syringe IV ×2 (12:45→15:37)
[2021-04-03] MEDS: Lactated Ringers 1,000 ML 100 ML IV (12:57)
[2021-04-03] MEDS: Ondansetron 4 MG/2 ML Vial IV (12:57)
[2021-04-03] MEDS: Enoxaparin 40 MG/0.4 ML Syringe SC (20:45)
[2021-04-04 01:13] VITALS: BP 118/64; PULSE 89; RESP 18; TEMP 36.3; O2SAT 99
[2021-04-04] MEDS: Acetaminophen 500 MG Tablet 1000 MG PO ×3 (01:19→12:22)
[2021-04-04 02:49] VITALS: RESP 18
[2021-04-04 04:26] VITALS: BP 131/57; PULSE 83; RESP 18; O2SAT 97
[2021-04-04] MEDS: Ketorolac 30 MG/ML Syringe IV (04:32)
[2021-04-04 06:27] VITALS: PULSE 81; RESP 18; O2SAT 98
[2021-04-04 06:41] LABS: Hematocrit 33.2 % (37-47); Hemoglobin 10.6 g/dL (12.0-15.0); Mean Corp Hgb Conc 31.9 g/dL (32-36); Mean Corpuscular Hgb 26.3 pg (27.0-32.0); Mean Corpuscular Volume 82.4 fL (81-99); Mean Platelet Vol. 10.8 fl (6.2-12.0); Platelet Count 276 K/mm3 (150-450); RBC Distribution Width CV 13.6 % (11.6-14.6); RBC Distribution Width SD 40.7 fl (35.1-43.9); Red Blood Count 4.03 M/mm3 (4.2-5.4); White Blood Count 13.4 K/mm3 (4.4-11.0)
[2021-04-04 08:47] VITALS: BP 132/63; PULSE 68; RESP 16; TEMP 36.6; O2SAT 98
--- NOTE | 2021-04-04 08:48 | PN.OBGYN_ITS ---
Subjective Subjective Pain controlled Objective Data Objective Data Vital Signs: Vital Signs Temp Pulse Resp BP Pulse Ox 97.9 F 68 16 131/57 H 98 04/04/21 08:47 04/04/21 08:47 04/04/21 08:47 04/04/21 04:26 04/04/21 08:47 Oxygen Delivery Method Room Air Weight: 268 lb 9.6 oz Body Mass Index (BMI) 42.0 Intake & Output: Intake and Output for Last 24 Hours 04/02/21 04/03/21 04/04/21 23:59 23:59 23:59 Intake Total 3093.33 / 3093.33 Output Total 950 / 950 Balance 2143.33 / 2143.33 Lab / Micro Data Result Diagrams: 04/04/21 06:35 Labs: Laboratory Results - last 24 hr 04/04/21 06:35: WBC 13.4 H, RBC 4.03 L, Hgb 10.6 L, Hct 33.2 L, MCV 82.4, MCH 26.3 L, MCHC 31.9 L, RDW Std Deviation 40.7, RDW Coeff of Noemi 13.6, Plt Count 2 76, MPV 10.8 Physical Exam Const alert, oriented x3 and no apparent distress HEENT normocephalic GI soft to palpation, non-tender and non-distended GI Narrative: fundus firm, mid & below umbilicus Incision - bandage c/d/i Extremity normal to inspection and no calf tenderness Assessment & Plan (1) Previous delivery affecting : COMMENT: POD#1 PLAN: Heme - HDS, cbc reviwed GI/ - no issues ID - AF, no signs infection Routine care
[2021-04-04] MEDS: Senna/Docusate Sodium 1 Tablet PO (10:24)
[2021-04-04] MEDS: Naproxen 500 MG Tablet PO (10:24)
[2021-04-04] MEDS: Enoxaparin 40 MG/0.4 ML Syringe SC (10:25)
[2021-04-04 14:32] VITALS: PULSE 70; RESP 16; TEMP 37
[2021-04-04 14:51] LABS: Pathology Specimen OB SEE PATHOLOGY REPORT
--- NOTE | 2021-04-04 16:45 | PCM.DC ---
Discharge Instructions Diet Discharge Diet: No restrictions Activity Discharge Activity: May Not Drive and May Shower May resume sexual activity in: 6 weeks Weight Bearing Status: Weight bearing as tolerated Dressing / Incision Call your doctor if your incision/area has: Continuous Slow Oozing, Sudden Increased Bleeding, Increased Pain/ Swelling, Increased Redness, Foul Smelling Discharge and Swelling at the incision site Call your doctor if you observe: Fever of 101 or Higher, Coldness, Increased Pain, Change in Color, Inability to urinate, Inability to have a bowel movement, Using more than 1 pad per hour, Shortness of breath, Dizziness, Fainting spells, Chest pain, Increased palpitations (irregular heartbeat), Calf discomfort and Uncontrolled pain Suture Line Care: Avoid Pulling/Pushing and Avoid Pinching/Bending Remove Dressing in: 1 week Cleanse incision/area with: Soap & Water Follow Up Care Please Follow Up With: Henna Mcfarland MD When: Follow up in 2 and 6 weeks for visits. Test Results: Test results from this visit will be discussed in further detail at your follow-up appointment, if applicable. Discharge Plan Admission Admit Date/Time: 04/03/21 05:05 Primary Reason for Your Visit: section Attending Provider: Henna Mcfarland Primary Care Provider: Sandi Romo Discharge Orders/Prescriptions Prescriptions: New acetaminophen 500 mg Tablet 1,000 mg PO Q6 Qty: 0 RF: 0 naproxen 500 mg Tablet 500 mg PO Q8H Qty: 0 RF: 0 Continued vit,[id number]-[id number] 1 TABLET tablet 2 tab PO DAILY RF: 0 Referrals / Follow Up: Sandi Romo MD [Primary Care Provider] - Disposition Disposition (needs filled in before D/C Order can be placed): Home, Self Care
== END 2021-04-04 17:50 | disposition home or self-care (01) | DRG 785 ==
PROVIDERS: Admitting Provider Obstetrics & Gynecology; PCP Internal Medicine; Visit Provider Obstetrics & Gynecology
PROC: 10D00Z1 Extraction of Products of Conception, Low, Open Approach (ICD-10-PCS; CPT 59514; principal; 2021-04-03 07:15)
DX: O16.4 Unspecified maternal hypertension, complicating childbirth (principal); O34.211 Maternal care for low transverse scar from previous cesarean delivery; O32.1XX0 Maternal care for breech presentation, not applicable or unspecified; E66.9 Obesity, unspecified; Z37.0 Single live birth; N85.8 Other specified noninflammatory disorders of uterus; O99.214 Obesity complicating childbirth; Z3A.39 39 weeks gestation of pregnancy; Z30.2 Encounter for sterilization; Z80.0 Family history of malignant neoplasm of digestive organs; Z82.49 Family history of ischemic heart disease and other diseases of the circulatory system; O65.5 Obstructed labor due to abnormality of maternal pelvic organs
CPT/HCPCS: 85025; 85027; 86850; 86900; 86901; 88302; 99218; J7120; A4216; G0378; J2405

== ENCOUNTER → 2022-01-15 | Outpatient (CLI) | payer OTHER, SELFPAY | END | disposition home or self-care (01) | LOC: LABSPEC 16:11 | PROVIDERS: PCP Internal Medicine; Visit Provider Physician Assistant | DX: R59.9 Enlarged lymph nodes, unspecified (principal) | CPT/HCPCS: 87070 ==

== ENCOUNTER → 2022-01-22 | Outpatient (CLI) | payer OTHER, SELFPAY ==
[2022-01-22 17:21] LABS: Absolute Lymphocyte Count 4.15 X10^3/uL (0.83-4.51); Basophil# 0.09 X10^3/uL; Basophil% 1.1 % (0-1); Eosinophil# 0.12 X10^3/uL; Eosinophils% 1.5 % (0-5); Hematocrit 39.9 % (37-47); Hemoglobin 12.1 g/dL (12.0-15.0); Lymphocyte # 4.15 X10^3/ul (0.83-4.51); Lymphocyte % 52.4 % (19-41); Mean Corp Hgb Conc 30.3 g/dL (32-36); Mean Corpuscular Hgb 23.5 pg (27.0-32.0); Mean Corpuscular Volume 77.6 fL (81-99); Monocyte# 0.58 X10^3/uL; Monocyte% 7.3 % (0-10); NRBC Flagged by Analyzer 0 % (0-5); Neutrophil # 2.96 X10^3/uL (2.7-7.7); Neutrophil % 37.4 % (47-70); POSITIVE MORPHOLOGY YES; Platelet Count 338 K/mm3 (150-450); RBC Distribution Width CV 14.6 % (11.6-14.6); RBC Distribution Width SD 40.9 fl (35.1-43.9); Red Blood Count 5.14 M/mm3 (4.2-5.4); White Blood Count 7.9 K/mm3 (4.4-11.0)
[2022-01-22 17:23] LABS: Differential Indicated SCAN CRITERIA MET
[2022-01-22 17:52] LABS: Differential Comment SCANNED
[2022-01-22 18:22] LABS: ALB/GLOB Ratio 0.8 RATIO (0.9-2.4); AST(SGOT) 47 U/L (15-37); Alanine Aminotransfer ALT/SGPT 114 U/L (13-56); Albumin, Serum 3.2 g/dL (3.2-5.0); Alkaline Phosphatase 91 U/L (45-117); Anion Gap 5 (5-15); BUN 13 mg/dL (7-18); BUN/Creat Ratio 16.6 RATIO (10-20); Calcium,Total 8.4 mg/dL (8.5-10.1); Chloride 107 mmol/L (98-107); Creatinine, Serum 0.78 mg/dL (0.55-1.02); EST Glomerular Filtration Rate 92 mL/min (>60); Est Glom Filt Rate - Afr Amer 111 mL/min (>60); Glucose 80 mg/dL (74-106); Potassium 3.9 mmol/L (3.5-5.1); Protein, Total 7.2 g/dL (6.4-8.2); Sodium Level 138 mmol/L (136-145)
== END | disposition home or self-care (01) ==
LOC: LAB 16:20
PROVIDERS: PCP Internal Medicine; Visit Provider Internal Medicine
DX: R59.1 Generalized enlarged lymph nodes (principal)
CPT/HCPCS: 36415; 80053; 85025